=== PATIENT | female | born 1955 | race Caucasian/White ===

== ENCOUNTER → 2021-02-19 | Outpatient (CLI) | payer MEDICARE ==
--- NOTE | 2021-02-19 09:47 | REPMRS ---
Patient History The patient states she has not had a clinical breast exam in over a year. Patient is postmenopausal and is nulliparous. Family history of pancreatic cancer at age 61 in father, breast cancer at age 75 in mother. Took hormonal contraceptives for 6 years. Took estrogen for 10 years. Took progesterone for 10 years. 90 lb intentional weight loss. Moderna vaccine 09/27/20 left arm, 10/25/20 left arm. Patient states no breast complaints today. Patient has signed MRS History Sheet. Digital Woman Screen Mammo: February 19, 2021 - Exam #: [id number] Bilateral CC and MLO view(s) were taken. Technologist: Pamela Ortega, RT Prior study comparison: January 31, 2018, bilateral digital mammo screening bilat, performed at [facility]. December 17, 2015, bilateral digital mammo screening bilat, performed at [facility]. January 23, 2014, bilateral digital mammo screening bilat, performed at [facility]. FINDINGS: The breast tissue is heterogeneously dense. This may lower the sensitivity of mammography. The Volpara volumetric breast density category is: C. Patient gives a history of a 90 lb intentional weight loss. There is diffuse thickening of the skin and some increased stromal thickening related to this. There is a moderate amount of heterogeneously dense fibroglandular tissue which is fairly symmetric. There is no other interval development of dominant mass, architectural distortion, or grouped microcalcification typical of malignancy. There has been no change in the appearance of the mammogram from the prior studies. 3-D tomosynthesis shows no additional findings. Assessment: BI-RADS/ACR category 2 mammogram. Benign Findings. Recommendation Routine screening mammogram of both breasts in 1 year (for women over age 40). This patient's [facility] Lifetime Breast Cancer RIsk is estimated at 12.6 %. This mammogram was interpreted with the aid of an FDA-approved computer-aided dectection system. Electronically Signed By: Stefano Nolen MD 02/19/21 0923
== END ==
LOC: M WHC 07:54
PROVIDERS: ATTEND Internal Medicine
DX: Z12.31 Encounter for screening mammogram for malignant neoplasm of breast (principal)

== ENCOUNTER → 2022-12-18 | Outpatient (CLI) | payer MEDICARE | LOC: M WHC 09:03 | PROVIDERS: ATTEND Internal Medicine | DX: Z12.31 Encounter for screening mammogram for malignant neoplasm of breast (principal) ==

== ENCOUNTER → 2023-04-06 | Day surgery (SDC) | payer MEDICARE ==
[~2023-04-06] VITALS: Ht 162.6 cm; Wt 81.5 kg
[~2023-04-06] MED LIST: ACET300T48; LIDOCAINE 2% W/EPINEPHRINE 20ML VIAL **PRES FREE As Ordered ONE; LOSA50TA28 PO; LR 1,000 ML IV SCH; MIDAZOLAM INJ 2MG/2ML VIAL As Ordered ONE; POVIDONE-IODINE 5% OPHTH PREP SOL 30ML As Ordered ONE; SODIUM BICARBONATE 4.2% INJ 10ML SYRINGE As Ordered ONE; TOBRADEX OPHTH OINT 3.5 GM As Ordered ONE; fentaNYL 100 MCG/2 ML INJECTION As Ordered ONE; hydrALAZINE 20MG/ML 1ML VIAL As Ordered ONE
[2023-04-06 11:50] VITALS: BP 175/101; TEMP 96.8; O2SAT 100
== END | disposition home or self-care (01) ==
LOC: M SDC 09:23
PROVIDERS: ATTEND Ophthalmology
DX: H02.413 Mechanical ptosis of bilateral eyelids (principal); I10 Essential (primary) hypertension; E78.5 Hyperlipidemia, unspecified; Z79.899 Other long term (current) drug therapy; E73.9 Lactose intolerance, unspecified; Z91.018 Allergy to other foods
CPT/HCPCS: 15823; 88304; J0360; J2250; J3010

== ENCOUNTER → 2024-12-12 | Outpatient (CLI) | payer MEDICARE ==
[~2024-12-12] MED LIST changes: -LIDOCAINE 2% W/EPINEPHRINE 20ML VIAL **PRES FREE As Ordered ONE; -LR 1,000 ML IV SCH; -MIDAZOLAM INJ 2MG/2ML VIAL As Ordered ONE; -POVIDONE-IODINE 5% OPHTH PREP SOL 30ML As Ordered ONE; -SODIUM BICARBONATE 4.2% INJ 10ML SYRINGE As Ordered ONE; -TOBRADEX OPHTH OINT 3.5 GM As Ordered ONE; -fentaNYL 100 MCG/2 ML INJECTION As Ordered ONE; -hydrALAZINE 20MG/ML 1ML VIAL As Ordered ONE
== END ==
LOC: M WHC 12:19
PROVIDERS: ATTEND Internal Medicine
DX: Z12.31 Encounter for screening mammogram for malignant neoplasm of breast (principal)